=== PATIENT | female | born 1990 | race African-American/Black ===

== ENCOUNTER 2019-09-18 09:03 | Inpatient (IN) ==
[2019-09-18] MEDS ORDERED: ONDANSETRON 4 MG/2 ML VIAL IV PRN (12:07)
[2019-09-18] MEDS ORDERED: LACTATED RINGERS 1,000 ML IV PRN (12:07)
[2019-09-18] MEDS ORDERED: ePHEDrine 50 MG/ML AMP IV PRN (12:27)
[2019-09-18] MEDS ORDERED: FAMOTIDINE 20 MG/2 ML VIAL IV ONE (12:27)
[2019-09-18] MEDS ORDERED: ONDANSETRON 4 MG/2 ML VIAL IV ONE (12:27)
[2019-09-18] MEDS ORDERED: NALOXONE 0.4 MG/ML VIAL IV PRN (12:27)
[2019-09-18] MEDS ORDERED: LACTATED RINGERS 1,000 ML IV ONE (12:27)
[2019-09-18] MEDS ORDERED: hydrOXYzine HCL 25 MG/1 ML VIAL IM PRN (12:27)
[2019-09-18] MEDS ORDERED: diphenhydrAMINE 50 MG/1 ML VIAL IV PRN ×2 (12:27)
[2019-09-18] MEDS ORDERED: PROMETHAZINE 25 MG/1 ML VIAL IM ONE (12:27)
[2019-09-18] MEDS ORDERED: CITRIC ACID/SODIUM CITRATE 30 ML UDCUP PO ONE (12:27)
[2019-09-18] MEDS ORDERED: LACTATED RINGERS 1,000 ML IV SCH (12:30)
[2019-09-18] MEDS ORDERED: fentaNYL 2 MCG/ROPIV 0.2% EPID 100 ML EPIDURAL SCH (12:30)
[2019-09-18 12:42] LABS: Basophils % 0.2 % (0.0-0.8); Eosinophils % 0.4 % (0.00-10.9); Hematocrit 37.1 VOL% (35.7-47.0); Hemoglobin 11.7 GM/DL (12.0-16.0); Immature Granulocytes % 1.1 %; Immature Granulocytes Absolute 0.11 #; Lymphocytes # 1.2 10*3/uL (1.4-4.0); Lymphocytes % 12.1 % (21.3-54.2); Mean Corpuscular HGB Conc 31.5 GM/DL (32-36); Mean Corpuscular Volume 86.9 FL (87-102); Mean Platelet Volume 11.5 FL (9.6-12.0); Monocytes % 8.1 % (1.7-12.7); Neutrophils % 78.1 % (38.7-73.9); Platelet Count 176 T/CUMM (130-400); Red Blood Count 4.27 MC/CUMM (3.8-5.5); Red Cell Distribution Width 13.2 % (9.3-17.3); White Blood Count 9.7 T/CUMM (4-12)
[2019-09-18 12:59] LABS: Platelet Estimate Normal
[2019-09-18] MEDS: LACTATED RINGERS 1,000 ML IV SCH ×2 (13:35→15:56)
[2019-09-18] MEDS ORDERED: miSOPROStoL 200 MCG TABLET ONE (15:30)
[2019-09-18] MEDS ORDERED: TRANEXAMIC ACID 1,000 MG/10 ML VIAL ONE (15:30)
[2019-09-18] MEDS ORDERED: CARBOPROST TROMETHAMINE 250 MCG/ML AMP IM ONE (15:30)
[2019-09-18] MEDS ORDERED: OXYTOCIN/LR 20 UNIT/1,000 ML BAG IV ONE (15:30)
[2019-09-18] MEDS ORDERED: METHYLERGONOVINE 0.2 MG/1 ML AMP ONE (15:30)
[2019-09-18] MEDS ORDERED: LIDOCAINE 1% 50 ML VIAL ONE (15:31)
[2019-09-18 16:16] LABS: Apearance,Urine CLEAR (Clear); Bilirubin,Urine Negative (Negative); Blood, Urine Negative (Negative); Glucose,Urine (UA) Negative (Negative); Ketones,Urine 20 mg/dL (Negative); Nitrite,Urine Negative (Negative); Protein,Urine Negative; Squamous Epithelial Cell,Urine Occasional /HPF (0-10); Urine Color Yellow (Yellow); Urine Specific Gravity 1.009 (1.001-1.035); Urine Urobilinogen < 2.0 EU/DL (0.2-1.0)
[2019-09-18] MEDS ORDERED: OXYTOCIN/LR 20 UNIT/1,000 ML BAG IV SCH (18:00)
[2019-09-18] MEDS ORDERED: IBUPROFEN 800 MG TABLET PO PRN (22:27)
[2019-09-19] MEDS ORDERED: oxyCODONE/ACETAMINOPHEN 5-325 MG TABLET PO PRN ×2 (01:59→02:56)
[2019-09-19] MEDS ORDERED: miSOPROStoL 200 MCG TABLET PO ONE (02:47)
[2019-09-19] MEDS ORDERED: OXYTOCIN/LR 20 UNIT/1,000 ML BAG IV ONE (03:49)
[2019-09-19] MEDS ORDERED: BENZOCAINE 20%/MENTHOL 0.5% SPRAY 56 GM CAN TOP PRN (04:15)
[2019-09-19 05:51] LABS: Basophils % 0.3 % (0.0-0.8); Eosinophils # 0.1 10*3/uL (0.0-0.87); Eosinophils % 0.5 % (0.00-10.9); Hematocrit 27.8 VOL% (35.7-47.0); Hemoglobin 8.7 GM/DL (12.0-16.0); Immature Granulocytes % 1.1 %; Immature Granulocytes Absolute 0.14 #; Lymphocytes # 1.3 10*3/uL (1.4-4.0); Lymphocytes % 9.7 % (21.3-54.2); Mean Corpuscular HGB Conc 31.3 GM/DL (32-36); Mean Platelet Volume 12.3 FL (9.6-12.0); Monocytes % 9.7 % (1.7-12.7); Neutrophils % 78.7 % (38.7-73.9); Platelet Count 175 T/CUMM (130-400); Red Blood Count 3.16 MC/CUMM (3.8-5.5); Red Cell Distribution Width 13.2 % (9.3-17.3); White Blood Count 13.1 T/CUMM (4-12)
[2019-09-19 06:33] LABS: Anisocytosis 1+; Platelet Estimate Normal
[2019-09-19] MEDS: DOCUSATE SODIUM 100 MG CAPSULE PO SCH ×2 (08:57→21:15)
[2019-09-19 10:17] LABS: Hematocrit 23.6 VOL% (35.7-47.0); Hemoglobin 7.7 GM/DL (12.0-16.0)
[2019-09-19] MEDS: FERROUS SULFATE 325 MG TABLET PO SCH ×3 (10:51→21:16)
[2019-09-19 11:33] LABS: HIV Antigen/Antibody Result Nonreactive (Nonreactive)
[2019-09-19 11:37] LABS: Hepatitis B Core IgM Quant 0.13 Index; Hepatitis B Surface Ag Quant < 0.10 Index; Hepatitis B Surface Ag Result Negative (Negative); Hepatitis C Virus Ab Quant 0.09 Index; Hepatitis C Virus Ab Result Negative (Negative)
[2019-09-20 05:42] LABS: Basophils % 0.3 % (0.0-0.8); Eosinophils # 0.2 10*3/uL (0.0-0.87); Eosinophils % 1.9 % (0.00-10.9); Hemoglobin 7.4 GM/DL (12.0-16.0); Immature Granulocytes % 1.4 %; Immature Granulocytes Absolute 0.14 #; Lymphocytes # 1.6 10*3/uL (1.4-4.0); Lymphocytes % 16.3 % (21.3-54.2); Mean Corpuscular HGB Conc 30.8 GM/DL (32-36); Mean Corpuscular Volume 87.9 FL (87-102); Mean Platelet Volume 12.3 FL (9.6-12.0); Monocytes % 7.9 % (1.7-12.7); Neutrophils % 72.2 % (38.7-73.9); Platelet Count 159 T/CUMM (130-400); Red Blood Count 2.73 MC/CUMM (3.8-5.5); Red Cell Distribution Width 13.4 % (9.3-17.3); White Blood Count 9.8 T/CUMM (4-12)
[2019-09-20 09:36] VITALS: BP 127/73
[2019-09-20] MEDS: DOCUSATE SODIUM 100 MG CAPSULE PO SCH (09:40)
[2019-09-20] MEDS: FERROUS SULFATE 325 MG TABLET PO SCH (09:40)
== END 2019-09-20 13:45 | disposition home or self-care (01) | DRG 807 ==
LOC: N.LDOUT 09:03 → N.LD 09:07 → N.OB 09-19 01:30
PROVIDERS: ADMIT Obstetrics & Gynecology; ATTEND Obstetrics & Gynecology